=== PATIENT | female | born 1945 | race Asian ===

== ENCOUNTER 2021-12-12 12:17 | Outpatient (REF) | payer MEDICAID, SELFPAY ==
--- NOTE | 2021-12-13 11:40 | MHC.AU.HFU ---
Hearing Instrument Follow-Up- Binaural Date of Visit: 12/12/21 Learning And Development Director Used: Mandarin Tongan by Phone Right Ear: Chicken Cutter: Phonak Model: Saraheo M 50-R Serial Number: [id number] Repair Warranty: 09/19/2022 Loss and Damage Warranty: 09/19/2022 Battery Size: Rechargeable Color: Beige Bulk Pigment Reducer: #1 M Type of Dome: Small Power Type of Wax Guard: CeruShield Dispensed By: [facility] Date of Fittin06/30/2019 Left Ear: Chicken Cutter: Phonak Model: Audeo M 50-R Serial Number: [id number] Repair Warranty: 09/19/2022 Loss and Damage Warranty: 09/19/2022 Battery Size: Rechargeable Color: Beige Bulk Pigment Reducer: #1 M Type of Dome: Small Power Type of Wax Guard: CeruShield Dispensed By: [facility] Date of Fittin06/30/2019 Follow-Up Summary: Hearing Aid Problem - Patient fit with hearing aids in 2019 and never returned for scheduled follow-up. Son reports she gets whistling (feedback) from both aids, right greater than left intermittently and they are afraid there is something wrong with the hearing aids. Visual inspection of aids in ear showed the patient is not inserting the domes all the way in the ear canals which will cause feedback. Once hearing aids are inserted correctly in the canals, feedback stops. Cleaned aids, changed wax guards and domes. Both aids amplifying clearly. Practiced insertion and showed son what the aids look like in the ears when inserted properly. Datalogging shows average of 13.5 average daily wearing time. Recommendations: Hearing instrument follow-up or maintenance as needed. Please contact our clinic with any questions or concerns. Recommendations (Other): Sending audiologic re-evaluation reminder card for October 2022. Diagnosis Code(s): Primary Diagnosis: H90.3 Bilateral Sensorineural Hearing Loss Services Performed:LI Non-Quantity Charges: HACHECKB (MH>1 yr or new to us) Face to face appointment Signature:Provider: Sarah Cook, ZENY-A
== END 2021-12-12 12:18 | disposition home or self-care (01) ==
LOC: HO.HAP 12:17
PROVIDERS: Visit Provider Internal Medicine Geriatric Medicine
DX: Z46.1 Encounter for fitting and adjustment of hearing aid (principal); H90.3 Sensorineural hearing loss, bilateral
CPT/HCPCS: 92593